=== PATIENT | male | born 1985 | race Two or more races ===

== ENCOUNTER 2018-11-30 17:17 | Emergency (ER) | payer MEDICAID ==
[~2018-11-30] VITALS: Ht 170.2 cm; Wt 90.7 kg
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
[2018-11-30] MEDS ORDERED: NKM (17:22)
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
[2018-11-30 17:32] VITALS: BP 121/76
[2018-11-30] MEDS ORDERED: IBUPROFEN600 MG ORAL (18:11)
[2018-11-30 18:37] VITALS: BP 121/76
--- NOTE | 2018-11-30 18:38 | NUR ---
ER DISCHARGE NOTE: Patient is cleared to be discharged per ERMD, pt is aox4, on room air, with stable vital signs. pt was given dc and prescription instructions, pt was able to verbalize understanding, pt is able to ambulate with steady gait. pt took all belongings.
--- NOTE | 2018-12-01 09:45 | Diagnostic Imaging Report ---
Indication: Back pain Technique: Continuous helical transaxial imaging of the lumbar spine was obtained. No IV contrast was administered. Coronal 2-D reformats were also obtained. Study obtained in a Siemens sensation [address] Total Dose length Product (DLP): 668.[address] Dose Index Volume (CTDIvol): 18.87 mGy Comparison: None Findings: There is no evidence of an acute fracture or malalignment. Height and configuration of the vertebral bodies and intervertebral discs are within normal limits. The facets are unremarkable. There is no soft tissue swelling. Bladder is distended. Impression: Negative lumbar spine CT The CT scanner at [facility] is accredited by the [employer] and the scans are performed using dose optimization techniques as appropriate to a performed exam including Automatic Exposure control.
== END 2018-11-30 18:39 | disposition home or self-care (01) ==
LOC: EDBD 17:17 → EMR 17:38
DX: S30.0XXA Contusion of lower back and pelvis, initial encounter (principal); W10.9XXA Fall (on) (from) unspecified stairs and steps, initial encounter; Y93.9 Activity, unspecified; Y92.9 Unspecified place or not applicable; E11.9 Type 2 diabetes mellitus without complications
CPT/HCPCS: 72131; 99284